=== PATIENT | female | born 1975 | race Two or more races ===

== ENCOUNTER 2019-04-01 21:27 | Emergency (ER) | payer MEDICAID ==
[~2019-04-01] VITALS: Ht 157.5 cm; Wt 81.6 kg
[2019-04-02 00:28] VITALS: BP 137/67
[2019-04-02] MEDS ORDERED: BACLOFEN 10 MG TAB PO ONE (00:30)
[2019-04-02] MEDS ORDERED: DexAMETHasone SOD PHOS 10MG/1ML VIAL INJ IM ONE (00:30)
[2019-04-02] MEDS ORDERED: HYDROcodone-ACET 10/325MG TAB PO ONE (00:30)
== END 2019-04-02 01:09 | disposition home or self-care (01) ==
LOC: ER 21:27
DX: M54.5 Low back pain (principal); M62.838 Other muscle spasm
CPT/HCPCS: 72131; 96372; 99284; J1100